=== PATIENT | male | born 2005 | race Caucasian/White ===

== ENCOUNTER 2024-12-19 10:26 | Emergency (ER) | payer OTHER ==
[~2024-12-19] VITALS: Ht 175.3 cm; Wt 88.4 kg
[2024-12-19 11:33] LABS: BASO # 0.1 10^3/uL (0.0-0.2); BASO % 1.2 % (0.0-1.0); EOS # 0.8 10^3/uL (0.0-0.5); EOS % 7.5 % (0.0-3.0); LYMPH # 3.3 10^3/uL (1.5-5.0); LYMPH % 31.5 % (24.0-44.0); MONO # 0.8 10^3/uL (0.0-0.8); MONO % 7.9 % (2.0-8.0); NEUTROPHILS # 5.3 10^3/uL (1.5-8.5); NEUTROPHILS % 51.4 % (36.0-66.0); PLATELET COUNT, AUTOMATED 283 10^3/uL (150-450)
[2024-12-19 11:48] LABS: D-DIMER QUANT < 0.27 ug/mL (<0.5); INR 1.06
[2024-12-19 12:04] LABS: CALCIUM LEVEL 9.0 MG/DL (8.5-10.1); CARBON DIOXIDE LEVEL 27 MMOL/L (20-31); CHLORIDE LEVEL 105 MMOL/L (98-107); CREATININE FOR GFR 1.07 MG/DL (0.70-1.30); GLOMERULAR FILTRATION RATE > 90.0 (>60); POTASSIUM SERUM 3.8 MMOL/L (3.5-5.1); SODIUM LEVEL 142 MMOL/L (136-145)
[2024-12-19] MEDS ORDERED: BENZ200C70 PO (13:06)
[2024-12-19 13:14] VITALS: BP 142/74; TEMP 98.7; O2SAT 98
== END 2024-12-19 13:15 | disposition home or self-care (01) ==
LOC: M ED 10:26
DX: R05.9 Cough, unspecified (principal); B34.1 Enterovirus infection, unspecified; J45.909 Unspecified asthma, uncomplicated; Z79.2 Long term (current) use of antibiotics